=== PATIENT | male | born 1965 | race Caucasian/White ===

== ENCOUNTER 2017-03-27 13:06 | Emergency (ER) | payer BC ==
[2017-03-27 13:54] VITALS: BP 139/89
--- NOTE | 2017-03-27 14:02 | UC ---
Elbow Pain - HPI Summary HPI Summary: complaint of right elbow pain that started 4 days ago denies trauma started to become swollen and warm and painful for the last 2 days nothing increases the pain took some ibuprofen with some relief denies fever and chills - History of Current Complaint Chief Complaint: UCUpperExtremity Stated Complaint: ELBOW PAIN Time Seen by Provider: 03/27/17 13:34 Hx Obtained From: Patient - Allergies/Home Medications Allergies/Adverse Reactions: Allergies Allergy/AdvReac Type Severity Reaction Status Date / Time No Known Allergies Allergy Verified 11/05/12 13:47 PMH/Surg Hx/FS Hx/Imm Hx Previously Healthy: Yes Endocrine History Of: Denies: Diabetes Respiratory History Of: Reports: Asthma - Surgical History Surgical History: Yes Surgery Procedure, Year, and Place: ankle. shoulder. hernia. back surgery - Family History Known Family History: Negative: Cardiac Disease, Hypertension, Diabetes - Social History Occupation: Employed Full-time Alcohol Use: Weekly Alcohol Amount: 12 per week Substance Use Type: None Smoking Status (MU): Light Every Day Tobacco Smoker Review of Systems Constitutional: Negative Skin: Negative Eyes: Negative ENT: Negative Respiratory: Negative Cardiovascular: Negative Gastrointestinal: Negative Genitourinary: Negative Motor: Negative Neurovascular: Negative Musculoskeletal: Other: - right elbow Neurological: Negative Psychological: Negative All Other Systems Reviewed And Are Negative: Yes Physical Exam Triage Information Reviewed: Yes Appearance: No Pain Distress, Well-Nourished Vital Signs: Initial Vital Signs Temp 98.8 F 03/27/17 13:39 Pulse 80 03/27/17 13:39 Resp 18 03/27/17 13:39 BP 139/89 03/27/17 13:39 Pulse Ox 96 03/27/17 13:39 Vital Signs Reviewed: Yes Eyes: Positive: Conjunctiva Clear ENT: Positive: Pharynx normal, TMs normal Neck: Positive: Supple Respiratory: Positive: Lungs clear, Normal breath sounds, No respiratory distress Cardiovascular: Positive: RRR, No Murmur, Pulses Normal Abdomen Description: Positive: Nontender, Soft Bowel Sounds: Positive: Present Musculoskeletal: Positive: Other: - No bony deformities, inflammation, or tenderness , medial, lateral epicondyle elbow. slight edema and erythema over olecranon-warm to touch, Full ROM upon flexion and extension. Neurological Exam: Normal Psychological Exam: Normal Skin Exam: Normal Elbow Pain Course/Dx - Course Course Of Treatment: exam completed. edema over olecranon bursa- refuses x- ray d/t no trauma-. will start antibiotic as requested- followup with orthopedics tomorrow if pain and swelling do not improve. pt understands that elbow may need to be drained - Differential Dx/Diagnosis Differential Diagnosis/HQI/PQRI: Fracture (Closed), Infection, Joint Effusion Provider Diagnoses: right elbow cellulitis/possible bursitis Discharge - Discharge Plan Condition: Stable Disposition: HOME Prescriptions: Sulfamethox/Trimethoprim DS* [Bactrim DS 800/160 TAB*] 1 tab PO BID #14 tab Patient Education Materials: Cellulitis (ED), Elbow Bursitis (ED) Referrals: Francisco Javier Jensen MD [Primary Care Provider] - Eliu Kan MD [Medical Doctor] - Additional Instructions: Please take antibiotic as directed Increase fluids and rest Take acetaminophen or ibuprofen for fever or pain Please review your discharge instructions. If your symptoms do not improve please call your primary care provider or return to urgent care. Your blood pressure is pre-hypertensive reading. Please contact your primary care provider within 1 day -4 weeks for further evaluation
== END 2017-03-27 14:20 | disposition home or self-care (01) ==
LOC: UCEAST 13:06
DX: L03.113 Cellulitis of right upper limb (principal); J45.909 Unspecified asthma, uncomplicated; F17.210 Nicotine dependence, cigarettes, uncomplicated
CPT/HCPCS: 99211; G0463

== ENCOUNTER 2017-11-05 08:26 | Observation (INO) | payer BC ==
[~2017-11-05 08:26] MED LIST: Bacitracin IV* 50,000 UNITS INJ ONE; Buffered Lidocaine 0.9% SYRIN* 5 ML/SYR SYRINGE INTRADERM ONE; Famotidine TAB* 20 MG PO ONE; Lidocaine 1% MPF wEPI 200,000* 30 ML SDV ONE; Metoclopramide TAB* 10 MG PO ONE; Thrombin 5,000 UNITS* 1 APPLIC KIT - topical use - TOPICAL ONE
[2017-11-05] MEDS ORDERED: Buffered Lidocaine 0.9% SYRIN* 5 ML/SYR SYRINGE ONE (08:36)
[2017-11-05] MEDS ORDERED: Metoclopramide TAB* 10 MG ONE (08:36)
[2017-11-05] MEDS ORDERED: Famotidine TAB* 20 MG ONE (08:36)
[2017-11-05] MEDS ORDERED: ceFAZolin 2 GM PREMIX (*) 2 GM/50 ML BAG IVPB ONE (08:36)
[2017-11-05] MEDS ORDERED: fentaNYL* 50 MCG/ML 5 ML VIAL (250 MCG VIAL) ONE (10:48)
[2017-11-05] MEDS ORDERED: Atracurium* 10 MG/ML 10 ML VIAL ONE (10:48)
[2017-11-05] MEDS ORDERED: Lidocaine 2% PF * 5 ML VIAL ONE (10:50)
[2017-11-05] MEDS ORDERED: Propofol* 10 MG/ML 20 ML BTL IV PUSH ONE (11:27)
[2017-11-05] MEDS ORDERED: DiMENhydriNATE IV* 50 MG/ML VIAL IV PUSH PRN (12:22)
[2017-11-05] MEDS ORDERED: Ondansetron INJ* 2 MG/ML VIAL IV PRN ×2 (12:22→14:02)
[2017-11-05] MEDS ORDERED: Ketorolac INJ* 30 MG/ML 1 ML VIAL IV PRN (12:22)
[2017-11-05] MEDS ORDERED: Magnesium Hydroxide LIQ* 30 ML UDC PO PRN (14:02)
[2017-11-05] MEDS ORDERED: Acetaminophen TAB* 325 MG PO PRN (14:02)
[2017-11-05] MEDS ORDERED: HYDROcodone/ACETAMIN 5-325 MG* 1 TAB PO PRN (14:06)
[2017-11-05] MEDS ORDERED: DiMENhydriNATE IV* 50 MG/ML VIAL ONE (14:39)
[2017-11-05] MEDS ORDERED: fentaNYL* 50 MCG/ML 2 ML VIAL (100 MCG VIAL) ONE ×2 (14:39→14:52)
[2017-11-05] MEDS: fentaNYL* 50 MCG/ML 2 ML VIAL (100 MCG VIAL) IV PRN ×2 (14:45→15:13)
--- NOTE | 2017-11-05 15:15 | RAD ---
INDICATION: Left lumbar discectomy COMPARISONS: None relevant TECHNIQUE: Fluoroscopy was provided for a surgical procedure. Total fluoroscopy time is: 7.9 seconds FINDINGS: Spot images demonstrate a metallic probe within the L5-S1 intervertebral disc space, counting from L5 as the last lumbar type vertebral body. IMPRESSION: FLUOROSCOPY WAS PROVIDED FOR A SURGICAL PROCEDURE CPT II Codes: 6045F
[2017-11-05] MEDS ORDERED: HYDROmorphone INJ* 1 MG/ML CARPUJECT SYRINGE ONE (15:34)
[2017-11-05] MEDS: HYDROmorphone INJ* 1 MG/ML CARPUJECT SYRINGE IV PRN ×2 (15:36→15:54)
[2017-11-05] MEDS: HYDROcodone/ACETAMIN 5-325 MG* 1 TAB PO PRN ×2 (16:42→20:40)
[2017-11-06] MEDS: HYDROcodone/ACETAMIN 5-325 MG* 1 TAB PO PRN ×3 (00:42→08:57)
--- NOTE | 2017-11-06 04:41 | OP ---
DATE OF OPERATION: 11/05/17 - ROOM #339 DATE OF : 65 SURGEON: Nicholas Cha MD CERTIFIED HOME HEALTH AIDE: RODRI Parker ANESTHESIOLOGIST: Jovan Bone MD ANESTHESIA: General. PRE-OP DIAGNOSIS: Recurrent left L5-S1 herniated nucleus pulposus. POST-OP DIAGNOSIS: Recurrent left L5-S1 herniated nucleus pulposus. OPERATIVE PROCEDURE: The patient underwent left L5-S1 reexploration, lysis of adhesions, and neurolysis with diskectomy and extended left S1 foraminotomy. COMPLICATIONS: None. ESTIMATED BLOOD LOSS: Less than 100 cc. SUMMARY: The patient is a very pleasant 51-year-old gentleman with complaints of back pain radiating to the left lower extremity with weakness in the plantar flexion of his left foot and numbness in the left S1 distribution. The patient has a history of left L5-S1 diskectomy in [place] 6 years ago and MRI findings consistent with recurrent left L5-S1 disk herniation. The patient was offered the option of surgical intervention after failing several conservative treatment modalities. After all expectations, limitation, and possible complications of the procedure had been explained in detail to the patient and his , with complications included, but not limited to bleeding, infection, risk of damage to adjacent structures, paralysis, , need for additional procedures, anesthesia risk, stroke, blindness, cancer, instability, spinal fluid leak, and need for additional procedures in the form of arthrodesis. The patient was agreeable to proceed with surgery and informed consent was obtained. He understood that his condition may not improve and in fact may get worse after the surgery and that he may have to have additional procedures in the future. He also understood that operative plan may be modified according to intraoperative findings and conditions. DESCRIPTION OF PROCEDURE: The patient was brought to the operating room, was placed under general anesthesia by the anesthesia team. He was carefully positioned prone on the Sam frame on the Marky table. All bony prominences were meticulously padded. His skin was prepped and draped in the standard fashion and the previous scar tissue from the previous incision was identified. After fluoroscopic imaging, appropriate surgical level was identified and the skin was infiltrated with local anesthetic. A #10 surgical blade was used to incise the skin and Bovie cautery was used to advance incision all the way to the dorsal fascia. Self-retaining retractor was introduced into the field, then the dorsal fascia was divided towards the left of the midline with use of Bovie cautery. The paraspinal musculature was gently elevated with use of Bovie cautery and periosteal elevators. Self- retaining retractors were introduced further into the field. After appropriate second surgical pause, intraoperative fluoroscopic image identification, and confirmation of appropriate surgical level, an extension laminotomy that was left of L5 was performed as well as the superior part of the lamina of S1 and medial facetectomy. This was performed under microscopic modification with high -speed drill. A lot of scar tissue was encountered as expected from his previous operation and these were carefully dissected. The exiting nerve root of S1 was readily identified and significant amount of scar tissue was identified at the area of his previous diskectomy at the disk space level with significant adhesions. The dura and the nerve root were identified. Meticulous lysis of adhesions was performed and neurolysis and then the thecal sac and nerve root was gently retracted medially. Large disk protrusion was readily identified that compressing the S1 nerve root and significant amount of ossification was also identified. After incising the anulus fibrosus with #11 surgical blade, a standard diskectomy was performed with the use of pituitary rongeurs, Kerrison punches and downgoing curettes. At the end of the procedure , the dura and the nerve root was found to be free of any pressure phenomenon. After performing an extended foraminotomy on the left S1 nerve root, the wound was copiously irrigated and after confirmation of meticulous hemostasis and after meticulous inspection of the wound, the self-retaining retractors were removed from the field and the wound was closed by layers. 0 interrupted Vicryl sutures were used to approximate the dorsal fascia while the subcutaneous tissue was approximated with interrupted 2-0 Vicryl sutures. The skin was approximated with 4-0 Monocryl in subcuticular layer and was covered with Steri-Strips and sterile sponges. At the end of the procedure, all counts were reported to be correct. The patient remained hemodynamically stable throughout the case. He was then carefully turned supine, was extubated and was transferred to the recovery in excellent condition. He was moving his all extremities and he has resolution of his left lower extremity pain. I was present and scrubbed for the entirety of the case. [id number]/[facility] #: [id number] [facility]
--- NOTE | 2017-11-06 07:21 | PN ---
Progress Note - Progress Note Date of Service: 11/06/17 SOAP: Subjective: []POD # 1 Doing well Leg pain better Some persistent numbness in leg Objective: []Motor intact Has ambulated,voiding well Assessment: []Satis post op course Plan: []D/C today D/C Instructions given
[2017-11-06 07:59] VITALS: BP 122/70
[2017-11-06] MEDS ORDERED: Losartan TAB* 25 MG PO SCH (09:00)
[2017-11-06] MEDS ORDERED: Aspirin Low Dose CHEW TAB* 81 MG PO SCH (09:00)
== END 2017-11-06 09:45 | disposition home or self-care (01) ==
LOC: OR 08:26 → SSU 16:18
PROVIDERS: ADMIT Neurological Surgery; ATTEND Neurological Surgery
DX: M51.26 Other intervertebral disc displacement, lumbar region (principal); I10 Essential (primary) hypertension; M51.36 Other intervertebral disc degeneration, lumbar region; M48.061 Spinal stenosis, lumbar region without neurogenic claudication; Z87.891 Personal history of nicotine dependence
CPT/HCPCS: 76001; 96374; 96375; A9270-GY; G0378; J0690; J1170; J1240; J2001; J2704; J3010

== ENCOUNTER 2019-09-15 06:20 | Day surgery (SDC) | payer BC ==
[~2019-09-15 06:20] MED LIST changes: -Bacitracin IV* 50,000 UNITS INJ ONE; -Buffered Lidocaine 0.9% SYRIN* 5 ML/SYR SYRINGE INTRADERM ONE; +Buffered Lidocaine 1% SYRIN* 1 ML/SYRINGE INTRADERM ONE; -Famotidine TAB* 20 MG PO ONE; +Lactated Ringers 1000 ML Bag* 1,000 ML IV SCH; -Lidocaine 1% MPF wEPI 200,000* 30 ML SDV ONE; -Metoclopramide TAB* 10 MG PO ONE; -Thrombin 5,000 UNITS* 1 APPLIC KIT - topical use - TOPICAL ONE
[2019-09-15] MEDS ORDERED: Bupivacaine 0.25% SDV* 30 ML ONE (07:12)
[2019-09-15] MEDS ORDERED: Propofol* 10 MG/ML 20 ML BTL ONE (07:25)
[2019-09-15] MEDS ORDERED: Lidocaine 2% PF * 5 ML VIAL ONE (07:25)
[2019-09-15] MEDS ORDERED: fentaNYL* 50 MCG/ML 2 ML VIAL (100 MCG VIAL) ONE (07:26)
[2019-09-15] MEDS ORDERED: Midazolam* 1 MG/ML 2 ML VIAL (2 MG) ONE (07:26)
[2019-09-15] MEDS ORDERED: Succinylcholine* 20 MG/ML 10 ML VIAL ONE (07:37)
[2019-09-15] MEDS ORDERED: Metoclopramide IV* 5 MG/ML 2 ML VIAL ONE (07:50)
[2019-09-15] MEDS ORDERED: Ondansetron INJ* 2 MG/ML VIAL ONE (07:50)
[2019-09-15] MEDS ORDERED: Dexamethasone IV* 4 MG/ML 1 ML (4 MG) ONE (07:50)
[2019-09-15] MEDS ORDERED: Ketorolac INJ* 30 MG/ML 1 ML VIAL ONE (07:50)
[2019-09-15] MEDS ORDERED: fentaNYL* 50 MCG/ML 2 ML VIAL (100 MCG VIAL) IV PRN (07:58)
[2019-09-15] MEDS ORDERED: oxyCODONE TAB* 5 MG TAB PO PRN (07:58)
[2019-09-15] MEDS ORDERED: Naloxone* 0.4 MG/ML 1 ML VIAL IV PRN (07:58)
[2019-09-15] MEDS ORDERED: Acetaminophen TAB* 325 MG PO PRN (07:58)
[2019-09-15] MEDS ORDERED: DiMENhydriNATE IV* 50 MG/ML VIAL IV PUSH PRN (07:58)
[2019-09-15 08:46] VITALS: BP 129/97
--- NOTE | 2019-09-15 11:40 | OP ---
DATE OF OPERATION: 09/15/19 [facility] DATE OF : 65 SURGEON: Gal Dumont MD. POWER SHOVEL MECHANIC: RODRI Marques. ANESTHESIOLOGIST: Dr. Cooper. ANESTHESIA: General. PRE-OP DIAGNOSIS: Right carpal tunnel syndrome. POST-OP DIAGNOSIS: Right carpal tunnel syndrome. OPERATIVE PROCEDURE: Right endoscopic carpal tunnel release. INDICATIONS: Mr. Broderick has carpal tunnel syndrome. We talked about treatment options. He wanted to proceed with release. He understands the risks including the risk of nerve injury. ESTIMATED BLOOD LOSS: 2 mL. COMPLICATIONS: None. FINDINGS: See above and below. DESCRIPTION OF PROCEDURE: Arvind was seen in the preoperative holding area. The correct site, side, and procedure were identified. We came back to the operating room. The arm was prepped and draped in the usual fashion and time- out was performed. The arm was exsanguinated and the tourniquet was inflated. I made a 1 cm transverse incision just ulnar to the palmaris longus tendon. Dissection was carried down. A two-prong skin hook was placed under the distal antebrachial fascia. The carpal tunnel was dilated and dried out and then the MicroAire Endoscopic Carpal Tunnel system was introduced into the carpal tunnel. Once I had it in the appropriate location, I elevated the blade and the release was carried out from distal to proximal. I then confirmed the release, everything was looking good, so I released the distal antebrachial fascia proximally. The wound was then irrigated out and closed with 4-0 Prolene suture and Steri- Strip. 0.25% Marcaine was infiltrated. He was taken to the recovery room in stable condition. [id number]/[facility] #: [id number] [facility]
== END 2019-09-15 08:59 | disposition home or self-care (01) ==
LOC: OREAST 06:20
PROVIDERS: ATTEND Orthopaedic Surgery Hand Surgery
PROC: 01N54ZZ Release Median Nerve, Percutaneous Endoscopic Approach (ICD-10-PCS; principal; 2019-09-15 07:30)
DX: G56.03 Carpal tunnel syndrome, bilateral upper limbs (principal); G62.89 Other specified polyneuropathies; J45.909 Unspecified asthma, uncomplicated; I10 Essential (primary) hypertension; Z87.891 Personal history of nicotine dependence
CPT/HCPCS: J0330; J1100; J1885; J2250; J2405; J2704; J2765; J3010; J3490

== ENCOUNTER 2019-10-06 06:44 | Day surgery (SDC) | payer BC ==
[~2019-10-06 06:44] MED LIST changes: +Dexamethasone IV* 4 MG/ML 1 ML (4 MG) IV SLOW PU ONE; +Dexamethasone IV* 4 MG/ML 1 ML (4 MG) ONE; +Famotidine IV* 10 MG/ML 2 ML (20 mg) IV ONE; +Famotidine IV* 10 MG/ML 2 ML (20 mg) ONE
[2019-10-06] MEDS ORDERED: Bupivacaine 0.25% EPI 200,000* 30 ML SDV ONE (07:12)
[2019-10-06] MEDS ORDERED: fentaNYL* 50 MCG/ML 2 ML VIAL (100 MCG VIAL) ONE ×2 (07:31→08:07)
[2019-10-06] MEDS ORDERED: Midazolam* 1 MG/ML 2 ML VIAL (2 MG) ONE (07:31)
[2019-10-06] MEDS ORDERED: Propofol* 10 MG/ML 20 ML BTL ONE (07:32)
[2019-10-06] MEDS ORDERED: Ondansetron INJ* 2 MG/ML VIAL ONE (07:32)
[2019-10-06] MEDS ORDERED: Ketorolac INJ* 30 MG/ML 1 ML VIAL ONE (07:32)
[2019-10-06] MEDS ORDERED: Bupivacaine 0.25% SDV* 30 ML ONE (07:44)
[2019-10-06] MEDS ORDERED: fentaNYL* 50 MCG/ML 2 ML VIAL (100 MCG VIAL) IV PRN (08:10)
[2019-10-06] MEDS ORDERED: Naloxone* 0.4 MG/ML 1 ML VIAL IV PRN (08:10)
[2019-10-06] MEDS ORDERED: oxyCODONE/Acetamin 5/325 MG* TAB PO PRN (08:10)
[2019-10-06] MEDS ORDERED: DiMENhydriNATE IV* 50 MG/ML VIAL IV PUSH PRN (08:10)
[2019-10-06 09:23] VITALS: BP 142/91
--- NOTE | 2019-10-06 13:09 | OP ---
OPERATIVE REPORT: DATE OF OPERATION: 10/06/19 DATE OF : 65 SURGEON: Gal Dumont MD DRESSING ROOM PORTER: RODRI Marques ANESTHESIOLOGIST: Dr. Rojas. ANESTHESIA: General. PRE-OP DIAGNOSIS: Left carpal tunnel syndrome. POST-OP DIAGNOSIS: Left carpal tunnel syndrome. OPERATIVE REPORT: Left endoscopic carpal tunnel release. INDICATIONS: Mr. Broderick is 53 years old. He has left carpal tunnel syndrome. We had talked about th e risks and benefits, he had wanted to proceed with surgery. ESTIMATED BLOOD LOSS: 2 mL. COMPLICATIONS: None. FINDINGS: See above and below. DESCRIPTION OF PROCEDURE: Mr. Broderick was seen in the preoperative holding area. The correct site, cl e and procedure were identified. We came back to the operating room. The arm was prepped and draped in the usual fashion and a time-out was performed. The arm was exsanguinated with the Esmarch and the tourniquet was inflated to 225 mmHg. I made a 1 c m incision just ulnar to palmaris longus tendon area. Dissection was carried down bluntly with the te notomy scissors. A 2-prong skin hook was placed underneath the fascia. The carpal tunnel was dilate d and dried out and then the MicroAire Endoscopic Carpal Tunnel System was introduced into the carpal tunnel. Under direct visualization, the transverse carpal ligament was released from distal to prox imal. Once proximally, I released the distal antebrachial fascia with the tenotomy scissors. At thi s point, the release was looking very good. I irrigated out the wound. The skin was closed with 4-0 Prolene suture and Steri-Strips. 0.25% Marcaine was infiltrated. A soft dressing was applied. He w as taken to recovery room in stable condition. [id number]/[facility] #: [id number]
== END 2019-10-06 09:38 | disposition home or self-care (01) ==
LOC: OREAST 06:44
PROVIDERS: ATTEND Orthopaedic Surgery Hand Surgery
DX: G56.02 Carpal tunnel syndrome, left upper limb (principal); Z87.891 Personal history of nicotine dependence; R05 Cough
CPT/HCPCS: J1100; J1885; J2250; J2405; J2704; J3010; J3490